=== PATIENT | female | born 1955 | race Caucasian/White ===

== ENCOUNTER → 2023-10-18 09:48 | Outpatient (REF) | payer MEDICARE, SELFPAY ==
[2023-10-18 12:22] LABS: % Basophils 1.2 % (0-2); % Eosinophils 1.7 % (0-6); % Immature Granulocytes 0.1 % (0-0.5); % Lymphocytes 25.2 % (20.5-51.1); % Monocytes 5.3 % (1.7-9.3); % Neutrophils 66.5 % (42.2-75.2); Absolute Basophils 0.1 10^3/uL (0-0.2); Absolute Eosinophils 0.1 10^3/uL (0-0.7); Absolute Lymphocytes 2.1 10^3/uL (1.2-3.4); Absolute Monocytes 0.4 10^3/uL (0.1-0.6); Absolute Neutrophils 5.5 10^3/uL (1.4-6.5); Hematocrit 45.1 % (37.0-47.0); Hemoglobin 14.8 g/dL (12.0-16.0); Mean Corp Hgb Conc. 32.8 g/dL (33.0-37.0); Mean Corpuscular Hgb 28.6 pg (27.0-31.0); Mean Corpuscular Volume 87.2 fL (81.0-99.0); Mean Platelet Volume 12.2 fL (7.4-10.4); Nucleated Red Blood Cells % 0 %; Platelet Count 326 10^3/uL (130-400); Red Blood Cell Count 5.17 10^6/uL (4.20-5.40); Red Cell Dist. Width 13.9 % (11.5-14.5); White Blood Cell Count 8.2 10^3/uL (4.8-10.8)
[2023-10-18 12:58] LABS: ALT (SGPT) 23 U/L (0-35); AST (SGOT) 27 U/L (14-36); Albumin 4.8 g/dl (3.5-5.0); Alkaline Phosphatase 103 U/L (38-126); Blood Urea Nitrogen 17 mg/dl (7-17); Calcium 10.4 mg/dl (8.4-10.2); Carbon Dioxide 28 mmol/L (22-30); Chloride 103 mmol/L (98-107); Glucose 109 mg/dl (70-99); HDL Cholesterol 52 mg/dl; LDL Cholesterol, Calculated 107 mg/dl; Potassium 5.1 mmol/L (3.5-5.1); Sodium 138 mmol/L (135-145); Total Bilirubin 0.8 mg/dl (0.2-1.3); Total Cholesterol 188 mg/dl (50-199); Total Protein 7.2 g/dl (6.3-8.2); Triglyceride 145 mg/dl (10-149); Very Low Density Lipoprotein 29 mg/dl (0-30); eGFR > 60.00
[2023-10-18 13:28] LABS: TSH 2.07 uIU/ml (0.47-4.68)
[2023-10-18 13:47] LABS: Vitamin B12 > 1000 pg/ml (239-931)
== END ==
LOC: HWRAD 09:48
PROVIDERS: ATTENDING PHYSICIAN Nurse Practitioner
DX: Z12.31 Encounter for screening mammogram for malignant neoplasm of breast (principal); R93.89 Abnormal findings on diagnostic imaging of other specified body structures; E06.3 Autoimmune thyroiditis; Z00.00 Encounter for general adult medical examination without abnormal findings; E78.2 Mixed hyperlipidemia
CPT/HCPCS: 36415; 76536; 77063; 77067; 80053; 80061; 82607; 84443; 85025

== ENCOUNTER → 2023-10-31 15:45 | Outpatient (REF) | payer MEDICARE, SELFPAY | LOC: RCS 15:45 | PROVIDERS: ATTENDING PHYSICIAN Nurse Practitioner Gerontology | DX: R42 Dizziness and giddiness (principal) | CPT/HCPCS: 93225; 93226 ==

== ENCOUNTER → 2023-11-07 13:05 | Outpatient (REF) | payer MEDICARE, SELFPAY | LOC: HWRCS 13:05 | PROVIDERS: ATTENDING PHYSICIAN Nurse Practitioner Gerontology; FAMILY PHYSICIAN Nurse Practitioner | DX: R42 Dizziness and giddiness (principal) | CPT/HCPCS: 93306 ==

== ENCOUNTER 2023-12-13 08:36 | Day surgery (SDC) | payer MEDICARE, SELFPAY ==
[2023-12-06 11:04] VITALS: BMI 29.1
[2023-12-06 11:37] LABS: % Basophils 1.2 % (0-2); % Eosinophils 1.4 % (0-6); % Immature Granulocytes 0.2 % (0-0.5); % Lymphocytes 25.9 % (20.5-51.1); % Monocytes 5.5 % (1.7-9.3); % Neutrophils 65.8 % (42.2-75.2); Absolute Basophils 0.1 10^3/uL (0-0.2); Absolute Eosinophils 0.1 10^3/uL (0-0.7); Absolute Lymphocytes 2.3 10^3/uL (1.2-3.4); Absolute Monocytes 0.5 10^3/uL (0.1-0.6); Absolute Neutrophils 5.8 10^3/uL (1.4-6.5); Hematocrit 44.3 % (37.0-47.0); Hemoglobin 14.5 g/dL (12.0-16.0); Mean Corp Hgb Conc. 32.7 g/dL (33.0-37.0); Mean Corpuscular Hgb 27.7 pg (27.0-31.0); Mean Corpuscular Volume 84.7 fL (81.0-99.0); Mean Platelet Volume 12.1 fL (7.4-10.4); Nucleated Red Blood Cells % 0 %; Platelet Count 279 10^3/uL (130-400); Red Blood Cell Count 5.23 10^6/uL (4.20-5.40); Red Cell Dist. Width 13.9 % (11.5-14.5); White Blood Cell Count 8.9 10^3/uL (4.8-10.8)
[2023-12-06 11:47] LABS: ALT (SGPT) 33 U/L (0-35); AST (SGOT) 33 U/L (14-36); Albumin 4.6 g/dl (3.5-5.0); Alkaline Phosphatase 89 U/L (38-126); Blood Urea Nitrogen 24 mg/dl (7-17); Calcium 10.7 mg/dl (8.4-10.2); Carbon Dioxide 28 mmol/L (22-30); Chloride 102 mmol/L (98-107); Estimated Creatinine Clearance 62 ml/min; Glucose 84 mg/dl (70-99); Potassium 4.5 mmol/L (3.5-5.1); Sodium 142 mmol/L (135-145); Total Bilirubin 0.9 mg/dl (0.2-1.3); Total Protein 6.9 g/dl (6.3-8.2); eGFR > 60.00
[2023-12-13] VITALS (9 sets, daily range): BP systolic 111–130; BP diastolic 49–77
[2023-12-13] MEDS: VANCOCIN 200 IV (09:27)
--- NOTE | 2023-12-13 13:00 | ITS.CL.PACE ---
Quality Specialist - Pacemaker Implant
Pacemaker Implant
Procedure Report:
Dual Chamber Pacemaker Placement:
Ms. 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 She is recommended for PPM placement.�
Indications: Tachy David syndrome with symptomatic bradycardia
Date of the Procedure: 12/13/2023
Pre-Operative Diagnosis: Tachy David syndrome
Post-Operative Diagnosis: Tachy David syndrome
Procedure Performed: DUAL CHAMBER PACEMAKER IMPLANTATION
Performing Physician:
Walter Fernandez MD
Anesthesia:
See anesthesia records
Pre-operative antibiotics:
Vanco / Aztreonam
Detailed Description of the Procedure:
The patient was identified using hospital identification and informed consent obtained for the procedure. The risks were explained including, but not limited to: Bleeding, infection, arrhythmia, stroke, vascular/cardiac/lung puncture, surgery,
pacemaker dependency/device malfunction. All questions were answered.
The patient was brought to the electrophysiology laboratory in stable condition in fasting state. Continuous electrocardiographic and hemodynamic monitoring was initiated. The initial rhythm was sinus bradycardia.
A surgical pause and time out was performed immediately prior to the procedure with review of her medical history, recent labs, allergies and medications with site of procedure identified and consent noted in the chart. Antibiotics pre operatively
given. All team members concurred.
The procedure site was meticulously prepared with surgical scrub and allowed to dry with no pooling. Sterile draping was applied to cover the procedure site. The image intensifier was draped with sterile bag and positioned over the patient.
The left infraclavicular region was prepped and draped in the usual sterile fashion. Local anesthesia was administered subcutaneously using 1% lidocaine / Bupivacaine. The left cephalic vein cutdown was attempted. There was a small cephalic noted
but not able to advance any sheaths.
Following infiltration with local anesthetic, the axillary vein was accessed using the fluoroscopic guidance using the micro-puncture apparatus. The vascular sheaths were introduced for lead access. The leads were advanced into the right ventricle
and the right atrium.
The right ventricular lead was secured in position with an active fixation technique at the apical septal location.
The atrial lead was deployed to right atrial appendage and anchored with active fixation.�
There was excellent sensing, pacing, and impedance from the leads, with no diaphragmatic stimulation at 10 V output.�Bovie cautery, antibiotics, and fluoroscopy were used.
The sheaths were withdrawn, and the thresholds remained acceptable. The leads were secured in position at the venous entry site with 2-0 Ethibond. A pocket was fashioned contiguous to the incision.
The electrode terminals were connected to the pulse generator, which was placed into the pocket. The wound was irrigated thoroughly with antibiotic solution. The pacemaker was secured to the underlying fascia with 2-0 Ethibond suture.
The wound was closed in 3 layers using 2-0 V Loc then 2 layers of 4-0 V loc sutures to the dermis. Steri-Strips and Aquacel applied to the wound.
Procedure End:
The procedure was tolerated well.
Estimated Blood loss:
5 cc
Specimens Removed:
No cultures and no specimens were obtained. No intraoperative pathology was identified.
Fluoro time:
5.0 min / 1.7Gycm2
Urine output:
None
Packs / Drains/ Tubes:
None
Instrument / Sponge Count Correct:
Yes
Complications of the Procedure:
None
Condition of Patient at Time of Transfer:
Hemodynamically stable with no neurological or vascular compromise.
Device information:�
Generator: [employer]; Model: W1DR01; Serial # [id number]�
Atrial Lead: [employer]; Model: 5076-45; Serial # [id number]�
Measured data in the right atrium was sensing of 1.8 mV, impedance of 684 ohms and threshold of 1.0 V at 0.4ms.
RV Lead: [employer]; Model: 5076-52; Serial # [id number]
Measured data in the RV lead was sensing of 10mV, impedance of 665 ohms and threshold of 0.75 V at 0.4ms�
David parameter settings were AAIR <=>DDDR 60-130 bpm. �
����������� Mode Switch: On
����������� Paced AV interval: 180ms
����������� Sensed AV interval: 150 ms.
����������� Rate Adaptive A-V Interval: Off
Output� parameters:
����������������������� Amplitude (V)������������� Pulse Width (ms)������� Sensitivity (mV)
����������� RA: ����� 3.5 ����������������� ����������� 0.4������������������ ����������� 0.3
����������� RV:������ 3.5������������������ ����������� 0.4������������������ ����������� 0.9
Summary:
Successful implantation of MRI compatible dual chamber Medtronic pacemaker
Results/Recommendations:
-Please follow up CXR�
1. Please provide patient with adequate pain control�
Instructions to be given to patient:�
- Please follow up with [facility] at [address] [place] [address] ([phone]) to get your wound checked within 14 days of your discharge.
- Do not wet incision site until after it is evaluated at cardiology clinic. No showers until then. Sponge baths are OK.�
- No swimming until cleared by the cardiology clinic.
- Do not lift left elbow above shoulder, particularly with sudden jerking movements, for 1 month�
- Do not lift anything weighing more than 10 pounds with the left arm for 1 month�
- If you notice any fevers, shortness of breath, lightheadedness, chest pain, or worsening swelling in the wound site, please contact the arrhythmia clinic, contact your nicu rn, or present to the hospital for evaluation.�
Walter Fernandez MD
Electrophysiology
[2023-12-13] MEDS: CALAN EXTENDED RELEASE 120 MG PO (14:54)
--- NOTE | 2023-12-13 15:03 | W.PN.UPDATE ---
Update Note
Progress Note Update
68 YOWF s/p DC PPM (same day). Denies cp, sob, marilin diet, EKG A paced with frequent PAC's, CXR no PTX. She was on metoprolol but stopped d/t asthma/cough, she did not tolerate Diltiazem ER but did tolerate short acting. We will trial verapamil ER
120mg daily to help with her ectopy. Activity restrictions reviewed. She has incision check in 1 week with [facility]. She is for d/c home after 4pm.
[2023-12-13] MEDS: TYLENOL 650 MG PO (15:34)
== END 2023-12-13 15:52 | disposition home or self-care (01) ==
LOC: CATH 08:36
PROVIDERS: ATTENDING PHYSICIAN Internal Medicine Cardiovascular Disease; OTHER PHYSICIAN Internal Medicine Cardiovascular Disease
DX: I49.5 Sick sinus syndrome (principal); I10 Essential (primary) hypertension; E78.00 Pure hypercholesterolemia, unspecified; Z79.82 Long term (current) use of aspirin
CPT/HCPCS: 33208; C1892; 36415; 71045; 80053; 85025; 93005; C1785; C1898; Q9967

== ENCOUNTER 2023-12-14 15:51 | Inpatient (IN) | payer MEDICARE, SELFPAY ==
[2023-12-14] VITALS (16 sets, daily range): BP systolic 124–196; BP diastolic 66–91; BMI 29.5
--- NOTE | 2023-12-14 12:45 | ED.GENMED ---
History of Present Illness
General
Chief Complaint: Chest Pain
Time Seen by Provider: 12/14/23 12:34
History of Present Illness
History of Present Illness:
Patient presents to the emergency department with left-sided chest pain. Had a pacemaker placed for bradycardia yesterday. She states last night she was having some shooting pains across her anterior chest and down the left arm. Pains are not
worsened by movement. Pain is worse with inhalation now she is having sharp pains that radiate under her left breast. She endorses mild shortness of breath. No fevers or chills. No leg swelling. Reports strong history of blood clots and had a
DVT at 1 point in her life. She is not currently on any anticoagulation
Past History
Past History
ED Past Medical History: None
Social History
Living: with family
Phy Exam
Physical Exam
Physical Exam:
GENERAL APPEARANCE: NAD, well developed/ well nourished
EYES lids/conjunctiva normal
EARS/NOSE/THROAT Mucous membranes moist,
HEAD/NECK normocephalic atraumatic, neck is supple.
RESPIRATORY respiratory effort normal, speaks in full sentences, no accessory muscle use. Lungs clear to auscultation without rhonchi, wheezes, rales
CARDIAC Regular rate and rhythm, no edema. Left chest wall status post pacemaker placement. Postoperative dressing is clean and intact without bleeding. There is no erythema in the surrounding skin. There is no crepitus
ABDOMINAL Soft, ND/NT.
MUSCLES/EXTREMITIES No abnormal range of motion, no swelling.
SKIN Warm, pink and dry. No rashes
NEUROLOGICAL Speech is clear and appropriate. Normal level of consciousness. 5/5 strength in all extremities.
PSYCH Normal mood and affect. Judgement/competence is appropriate
Scores
Heart Score for Chest Pain Patients
STEMI patient?: No
History: Slightly or Non-Suspicious
ECG: Nonspecific Repolarization
Age: >/= 65 years
Risk Factors: 1 or 2 Risk Factors
Troponin: >1 - <3 x Normal Limit
Heart Score for Chest Pain Patients: 5
Heart Score Risk: 20.3% MACE over next 6 weeks
Course
Orders/Labs/Results
Orders:
Orders
12/14/23 12:13
EKG [Electrocardiogram (*1)] Urgent
Reason for Study: Chest Pain
EKG- Treatment ONCE
12/14/23 12:44
CR Chest - 2 Views Urgent
Comment:
Reason For Exam: chest pain
12/14/23 12:46
Basic Metabolic Panel Urgent
Complete Blood Count/With Diff Urgent
D-Dimer Urgent
Magnesium Urgent
Troponin I Urgent
12/14/23 13:12
CT Chest Pe Study Urgent
Comment:
Reason For Exam: pleuritic pain, s/p ppm
12/14/23 14:09
Echo Follow-up Study Stat
Reason for Study: CP S/P PPM
12/14/23 15:41
Admit/Transfer Patient As Directed
Co-Sign Provider:
Level of Care: Inpatient admission
Assign to:: IVU
Physician / Group: CBC
Diagnosis: Pacemaker lead malfunction
Reason for Hospitalization: Pacemaker lead malfunction, requiring revision
Expected length of stay greater than two midnights?: Yes
ELOS- Estimated Length of Stay in days: 3
I certify the patient meets the requirements for IP care: Yes
12/14/23 15:42
Code Status As Directed
Resuscitation Status: Full Code
PRN Pain Medication Management As Directed
May give lesser potent ordered pain med per pt: Yes
preference::
Protocol:: Medication orders for pain may be administered in a
manner that supports deferring to patient preference
when the pt is:
- Requesting an ordered lesser potent pain medication.
Least to most potent pain medications are defined
as: acetaminophen < NSAID < tramadol < opioids
(morphine, oxycodone, hydromorphone).
- Requesting a lesser dose of the same medication IF
ORDERED.
- Requesting a less intrusive route of administration
if both routes are prescribed by the provider (PO <
IV).
12/14/23 17:06
Activity As Directed
Activity Level: With Assistance
As Tolerated
INT (Intravenous Needle Therapy) As Directed
Intake/ Output As Directed
Frequency: Per unit guidelines
Pneumatic Compression Sleeves As Directed
Type: Knee high
Vital Signs As Directed
Frequency: Per unit guidelines
Weight As Directed
Frequency: Once
Type of Scale: Standing Scale
DX Deep Vein Thrombosis Video Routine
12/14/23 17:19
Troponin I Urgent
12/15/23 06:00
CBC/No Diff [Complete Blood Count/No Diff] IN AM
Abnormal Lab Results
12/14/23
12:46
WBC 17.2 H 10^3/uL
(4.8-10.8)
MPV 11.8 H fL
(7.4-10.4)
Abs Immat Gran (auto) 0.1 H 10^3/uL
(0-0.05)
Absolute Neuts (auto) 13.6 H 10^3/uL
(1.4-6.5)
Absolute Monos (auto) 1.0 H 10^3/uL
(0.1-0.6)
Neutrophils % 79.3 H %
(42.2-75.2)
Lymphocytes % 14.5 L %
(20.5-51.1)
D-Dimer 3.28 H ug/mlFEU
(0.00-0.50)
Glucose 101 H mg/dl
(70-99)
Calcium 11.8 H mg/dl
(8.4-10.2)
Troponin I 0.060 H* ng/ml
12/14/23 12:46
12/14/23 12:46
Vital Signs
Initial and Last Documented VS:
Initial Vital Signs
Pulse Resp BP Pulse Ox
67 16 196/88 98
12/14/23 12:15 12/14/23 12:15 12/14/23 12:15 12/14/23 12:15
Last Documented Vital Signs
Temp Pulse Resp BP Pulse Ox
98.1 F 79 16 145/73 96
12/14/23 19:01 12/14/23 19:40 12/14/23 19:40 12/14/23 19:30 12/14/23 19:40
*Critical Care Note
Total Time (30-74mins, 75-104mins- exclusive of procedures): Not Applicable
ED Attending Note
ED Attending Note
ED Attending Note:
Patient presents with postoperative chest pain on the left side around the area of pacemaker. Pacemaker site appears normal. Will check x-ray. Differential diagnosis includes postoperative pain, PE, pneumo fraction. Will check chest x-ray, labs,
reassess
CT scan showing right ventricular pacemaker lead is through the myocardium and into the left chest wall. Cardiology consulted. Patient remains hemodynamically stable. Will continue to monitor
-
Portions of this chart may have been created with voice recognition software.� Occasional wrong word or��sound alike� substitutions may have occurred due to the inherent limitations of voice recognition software.
Discharge Plan
Departure
Patient Disposition: Admit
Date of Disposition: 12/14/23
Time of Disposition: 15:53
Admit to: Telemetry
Admit to doctor: cardiology
Presentation/result/management discussed w/ accepting MD/DO: Dr Allen
Discharge Problem:
Malfunction of cardiac pacemaker
Interventions
Interventions:
*Risk Screen - Suicide Last Done: 12/14/23 12:15
*General Assessment Last Done: 12/14/23 14:50
*Neglect/Abuse Screening Last Done: 12/14/23 14:50
ED- Fall Risk Assessment Last Done: 12/14/23 16:17
*ED COVID-19 Vaccine History Last Done: 12/14/23 14:50
*Nursing Disposition Last Done: 12/14/23 16:19
ED- Cardiac Assessment Last Done: 12/14/23 16:17
Discharge Date and Time
Discharge Date/Time: 12/14/23 16:19
[2023-12-14 13:00] LABS: % Basophils 0.2 % (0-2); % Immature Granulocytes 0.3 % (0-0.5); % Lymphocytes 14.5 % (20.5-51.1); % Monocytes 5.7 % (1.7-9.3); % Neutrophils 79.3 % (42.2-75.2); Absolute Immature Granulocytes 0.1 10^3/uL (0-0.05); Absolute Lymphocytes 2.5 10^3/uL (1.2-3.4); Absolute Neutrophils 13.6 10^3/uL (1.4-6.5); Hematocrit 44.4 % (37.0-47.0); Hemoglobin 15.1 g/dL (12.0-16.0); Mean Corpuscular Volume 85.2 fL (81.0-99.0); Mean Platelet Volume 11.8 fL (7.4-10.4); Nucleated Red Blood Cells % 0 %; Platelet Count 273 10^3/uL (130-400); Red Blood Cell Count 5.21 10^6/uL (4.20-5.40); Red Cell Dist. Width 13.8 % (11.5-14.5); White Blood Cell Count 17.2 10^3/uL (4.8-10.8)
[2023-12-14 13:08] LABS: D-Dimer 3.28 ug/mlFEU (0.00-0.50)
[2023-12-14 13:11] LABS: Blood Urea Nitrogen 15 mg/dl (7-17); Calcium 11.8 mg/dl (8.4-10.2); Carbon Dioxide 25 mmol/L (22-30); Chloride 103 mmol/L (98-107); Glucose 101 mg/dl (70-99); Magnesium 2.1 mg/dl (1.6-2.3); Potassium 4.3 mmol/L (3.5-5.1); Sodium 141 mmol/L (135-145); eGFR > 60.00
--- NOTE | 2023-12-14 15:36 | HPS.HSE ---
Addendum entered and electronically signed by Charles Allen MD 12/14/23 16:40:
Patient seen and examined in collaboration with TORCH CUTTER; agree with below.
-68-year-old female who underwent permanent pacemaker implantation yesterday; presenting with sharp left-sided chest pain.
-Stat echocardiogram revealed no pericardial effusion; cardiac function was normal.
-Device interrogation did reveal intermittent pacemaker malfunction.
-Discussed with EP Cardiology; patient will need to undergo lead revision.
-Will admit to Cardiology service with plan for patient to undergo lead revision today.
Original Note:
Family Physician
-
Family Physician: Jazzy La
Primary Supervisor Electronics Testing: Josh Casanova
EP Supervisor Electronics Testing: Walter Fernandez
Chief Complaint
-
Chest pain
History of Present Illness
Mandie Tsang is a 68-year-old female with hypertension, frequent PACs, and SVT who presented in the outpatient setting with low heart rate, fatigue, dizziness, and nausea. I ordered a Holter monitor which showed bradycardia and tachycardia while
off her AV michele agents. She had frequent atrial ectopy approximately 21% of beats. I referred her to EP cardiology. She was seen by Dr. Fernandez who recommended pacemaker. Yesterday, she underwent Medtronic pacemaker. She had no postprocedure
complications and was discharged home. She presented back today with severe chest pain. Some of it alleviated with Tylenol but it persistently returned. She reports it was severe in nature. She had associated shortness of breath. CAT scan
showed RV lead penetrated through the myocardium and the tip is now within the anterior chest wall. She is waiting echocardiogram to rule out pericardial effusion. The device rep has been contacted for interrogation.
Medical History
Past Medical History
Past Medical History: Reports Arrhythmia (PACs, SVT, Tachycardia-bradycardia syndrome [PPM 12/13/23]), HTN and Hypercholesterolemia
Past Surgical History: Reports Gynocological
Social History
Tobacco: Non-smoker
Personal:
Living: With Family
Family History
Family History: Not pertinent
Allergies / Home Medications
Allergies reflects when Allergies were last updated in [facility].
Home Medications with original date entered in [facility]
Allergy/Medication List:
Allergies:
Penicillin caused rash
Trelegy
Home medication list:
Albuterol sulfate
Aspirin 81 mg daily
Qvar 1 inhalation twice daily
Levothyroxine 25 mcg p.o. daily
Meclizine 25 mg p.o. as needed dizziness
Montelukast 10 mg p.o. daily
Rosuvastatin 10 mg p.o. daily
Verapamil 120 mg p.o. every afternoon
Multivitamin 1 tab p.o. daily
Review of Systems
-
History Source: Patient
A 12 point ROS was completed and negative except as noted: Yes
Constitutional: Reports See HPI
EENT: Reports No Symptoms
Respiratory: Reports No Symptoms
Cardiac: Reports No Symptoms
Abdomen/GI: Reports No Symptoms
: Reports No Symptoms
Musculoskeletal: Reports No Symptoms
Skin: Reports No Symptoms
Neurological: Reports No Symptoms
Endocrine: Reports No Symptoms
Hematologic/Lymphatic: Reports No Symptoms
Psych: Reports No Symptoms
Physical Exam
Vital Signs
Vital Signs
Pulse Resp BP Pulse Ox
74 19 172/88 95
12/14/23 14:45 12/14/23 14:45 12/14/23 14:00 12/14/23 14:45
Physical Exam
General: Well Developed, Well Nourished, No Apparent Distress and Comfortable
HEENT: NormoCephalic, Anicteric and Moist mucous membranes
Respiratory: Clear
Cardiac: S1/S2 and Regular Rhythm
Breast: Deferred by me
GI: Soft, Non Tender, Non Distended and Normal Bowel Sounds
Rectal: Deferred by Provider
Genito-urinary: No costovertebral tender
Musculoskeletal: No Clubbing, No Cyanosis and No Edema
Skin: Warm, Dry and Other (Left chest site without hematoma)
Neuro: AO x 3
Hematologic/Lymphatic: No Lymphadenopathy
Laboratory Results
-
12/14/23 12:46
12/14/23 12:46
Laboratory Results
Troponin I 0.060 ng/ml H* 12/14/23 12:46
Data Reviewed
-
Diagnostic Radiology: Report Reviewed by me
Lab Data: Labs Reviewed by me
Old Records: Reviewed
Impression/Plan
-
BACKGROUND: 68-year-old female with hypertension, frequent PACs, and SVT who presented in the outpatient setting with low heart rate, fatigue, dizziness, and nausea -> Holter with tachybrady -> PPM 12/13/2023 and today is having left anterior CP
Supervisor Electronics Testing: Dr. Casanova
EP: Dr. Fernandez
Left anterior chest pain
-No hematoma
-Significant without relief with acetaminophen
-CT scan showed RV lead penetrated through myocardium with tip in the left anterior chest wall
-Echocardiogram
-Device rep contacted, interrogation, hold AV michele agent until interrogation completed
Abnormal troponin, likely nonischemic myocardial injury in the setting of recent cardiac procedure
-Trend to peak
Tachycardia�bradycardia syndrome, status post Medtronic dual-chamber PPM 12/14/[address] Fernandez
Leukocytosis, likely reactive, CBC in a.m.
Asthma, chronic, no acute exacerbation
Dyslipidemia, on rosuvastatin
--- NOTE | 2023-12-14 16:19 | EDRN ---
Went in to draw type and screen and meet pt, called by laboratory clerk and informed they are ready for pt. Unable to provide report at that time due to just meeting pt - requested call back in less than 5 minutes. Type and screen drawn. Pt says she had
a pacer placed yesterday, has had intermittent L side cp. Today pain got a lot worse radiating down her L arm and more intense. Pt says while pacer being interrogated she felt electrical shocks through her body and her whole body was jumping. Pt
denies sob, has intermittent cp now. medical lab director called back and given quick report. Krys Parsons, RN transported pt to laboratory clerk with pt's family.
--- NOTE | 2023-12-14 17:16 | ITS.CL.PACE ---
Senior Data Warehouse Developer - Pacemaker Implant
Pacemaker Implant
Procedure Report:
Date of Procedure: December 14, 2023.
Procedure: Pacemaker Lead Revision.
Indication: RV lead malfunction from lead dislodgment/migration.
Performing physician: Joey Wagner MD., [facility].
Retained Hardware (implanted on 12/13/2023):
Pulse Generator: [employer]; Model# [id number]; Serial # [id number].
RA Lead: [employer]; Model# 5076-45; Serial # [id number].
RV Lead: [employer]; Model# 5076-52; Serial # [id number].
Technique: A time out was performed. The procedure site was identified. The patient was anesthetized by the anesthesia service. Anesthesia preparation included arterial line access and general endotracheal intubation. Cardiothoracic surgery was
standing by and into the control room during lead manipulation back to the right ventricle. Preoperative vancomycin and aztreonam was administered. The patient was prepped and draped in the usual fashion with extension of the preparation to include
the full chest in case cardiothoracic surgery was necessary. Lead fluoroscopy in BECKMAN, AP, and LEBANESE projections was performed. LEBANESE was most informative. The lead appeared to be across or deeply into the septum and potentially beyond the pericardium
where the tip might have been in the pericardial space or just beyond as suggested by the CT scan. Local anesthetic was applied to the over the incision in the left anterior chest. A 3 inch incision was made the incision made yesterday by
Jim. Dissection was carried to the fascia. The RV lead was freed from stay suture. The screw was retracted. Very gentle traction was applied to the RV lead under continuous fluoroscopy. Resistance was met. Gentle traction freedom lead until
clearly was back into the right ventricular cavity. The lead was withdrawn into the right atrium. A J stylette was used to cross the tricuspid valve. The lead was placed in the mid RV septum as confirmed by multiplanar fluoroscopy. The ventricular
lead was secured to the pectoralis muscle and fascia with two 0-silk sutures. 8 volt pacing from the RV lead did not capture the diaphragm. Hemostasis was excellent. The RV lead was appropriately attached to the device. The pocket was irrigated with
antibiotic solution. A Ansiratronic Tyrx absorbable antibiotic pouch was placed. The device and leads were placed in the pocket. The incision was closed in three layers with absorbable suture. Steri-strips and a silver impregnated dressing were placed.
Estimated blood loss was 2 ml. There were no complications. F Fluoroscopy time 2.2 minutes and DAP 1.02 GyCM2. The device was then interrogated after skin closure.
Lead Analysis:
RA lead: P: 4.5 mV; Threshold: 0.5 V @ 0.4 ms; Impedance: 513 ohms.
RV lead: R: 12 mV; Threshold: 0.75 V @ 0.4 ms; Impedance: 893 ohms.
Final Programming: MVP (AAIR to DDDR) 60-130 bpm.
Conclusion: Uncomplicated Medtronic pacemaker implant. The pacing system is MRI conditional.
Recommendation: Routine post pacemaker care.
cc: Walter Fernandez MD.
[2023-12-14 17:51] LABS: Troponin I 0.056 ng/ml
--- NOTE | 2023-12-14 19:47 | PTCARENOTE ---
Received pt from day shift RN; pt AAOx3 and resting comfortably in bed; NSR on monitor and VSS; PIV x2 and Left A-line patent; Lungs clear; positive bowel sounds; pt voiding yellow urine via pure wick; palpable pulses throughout; no edema noted; see
nursing documentation for further details.
[2023-12-14] MEDS: TYLENOL 650 MG PO (20:17)
[2023-12-14] MEDS: AZACTAM 2000 MG IV (20:17)
[2023-12-14] MEDS: SINGULAIR 10 MG PO (21:07)
[2023-12-14] MEDS: CRESTOR 10 MG PO (21:07)
[2023-12-15] VITALS (14 sets, daily range): BP systolic 119–164; BP diastolic 60–87; BMI 29.8
--- NOTE | 2023-12-15 | PTCARENOTE ---
Patient received resting in bed, dozing intermittently. Patient A+A+Ox3. No neurological deficits noted. No c/o pain or discomfort. No s/s of respiratory distress. No c/o SOB. Room air. SpO2 92%. Lungs clear. Patient with Permanent
Pacemaker. Sinus Rhythm. Occasional PAC. Occasional A-Pacing noted. Left arm immobilizer intact. Left anterior chest wall Aquacell dressing intact - No hematoma, bleeding, oozing or swelling noted. Positive circulation, sensation and movement
to left upper extremity. Patient with no c/o chest pain, pressure or discomfort. Normoactive bowel sounds. Patient with Female External Urinary Device (Pure Wick) in place - Yellow urine. Bedrest. No edema. Positive pulses. Left radial
arterial line - Intact and patent - Flushes without difficulty - Zeroed and calibrated. Assessment as documented.
--- NOTE | 2023-12-15 03:00 | PTCARENOTE ---
Patient sleeping without difficulty. No further changes from previous assessment.
[2023-12-15] MEDS: SYNTHROID 25 MCG PO (05:27)
[2023-12-15 05:41] LABS: Mean Corp Hgb Conc. 33.3 g/dL (33.0-37.0); Mean Corpuscular Hgb 27.8 pg (27.0-31.0); Mean Corpuscular Volume 83.3 fL (81.0-99.0); Mean Platelet Volume 11.4 fL (7.4-10.4); Platelet Count 257 10^3/uL (130-400); Red Blood Cell Count 5.04 10^6/uL (4.20-5.40); White Blood Cell Count 12.3 10^3/uL (4.8-10.8)
[2023-12-15 06:11] LABS: Blood Urea Nitrogen 18 mg/dl (7-17); Calcium 9.9 mg/dl (8.4-10.2); Carbon Dioxide 24 mmol/L (22-30); Chloride 107 mmol/L (98-107); Estimated Creatinine Clearance 86 ml/min; Glucose 138 mg/dl (70-99); Potassium 4.8 mmol/L (3.5-5.1); Sodium 143 mmol/L (135-145); eGFR > 60.00
--- NOTE | 2023-12-15 07:25 | PTCARENOTE ---
Pt received from outgoing RN, pt in bed resting, POD 1 revision of PPM. Aaox4, vss, RA, Lt radial [place], Left arm sling, purewick. Potential dced home today pending cardiology eval.
--- NOTE | 2023-12-15 08:24 | W.PN.CD ---
Today's Communication / Plan
-
DC arterial line
Downgrade to IVU
Interrogate the pacemaker and bedside echo.
Impression / Plan
-
68-year-old female with hypertension, frequent PACs, and SVT who presented in the outpatient setting with low heart rate, fatigue, dizziness, and nausea -> Holter with tachybrady -> PPM 12/13/2023 with subsequent RV lead dislodgement s/p lead
revision on 12/14/2023
[employer] Finishing Supervisor: Dr. Casanova
EP: Dr. Fernandez
RV lead dislodgment
-RV lead was dislodged and moved into RVOT.
-RV tip was intermittently capturing the RV
-Dr. Wagner was able to reposition the lead.
-Patient's lead is working normally at this time.
-Patient blood pressure remained elevated overnight. No sign of perforation.
-Echo shows no pericardial effusion.
-Can remove arterial line today.
-Transfer to IVU
Tachybradycardia syndrome
-status post Medtronic dual-chamber PPM 12/14/2023
-Can restart verapamil 120 mg twice daily
-Needs to suppress SVT, PACs and PVCs
Abnormal troponin, likely nonischemic myocardial injury in the setting of recent cardiac procedure
-Trend to peak
Tachycardia�bradycardia syndrome, status post Medtronic dual-chamber PPM 12/14/[address] Fernandez
Leukocytosis, likely reactive, CBC in a.m.
Asthma, chronic, no acute exacerbation
Dyslipidemia, on rosuvastatin
Physical Exam
Vital Signs/Labs
Vital Signs
Temp Pulse Resp BP Pulse Ox
98.6 F 68 14 137/77 97
12/15/23 00:00 12/15/23 03:30 12/15/23 03:30 12/15/23 03:00 12/15/23 07:27
12/14/23 12/15/23 12/16/23
06:59 06:59 06:59
Actual Weight 86.1 kg
12/15/23 05:25
12/15/23 05:25
Magnesium 2.1 mg/dl (1.6-2.3) 12/14/23 12:46
LAB Results
12/14/23 12/14/23
12:46 17:19
Troponin I 0.060 H* 0.056 H*
Physical Exam
Constitutional: No acute distress and Comfortable
EENT: Anicteric and Moist mucous membranes
Cardiovascular: Rhythm & rate is regular, Pedal edema is absent and JVD pressure is normal
Respiratory: Respiratory effort normal, Lungs clear to auscul. and Wheeze Absent
GI: Soft, Non tender and Normal bowel sounds
Neuro/Psych: Alert, Oriented, AO x 3 and Motor deficits absent
Other: Cardiac Device Site
Data Reviewed
-
Date of Service: December 15, 2023
Medical Decision Making: Reviewed Test Results, Independent Historian Assessment and Test Interpretation
EKG: Tracing Personally Visualized and interpreted
Echo: Report Reviewed by me
X-Ray/CT/US/MRI/NUC/PET: Image Personally Visualized and interpreted
Labs: Labs Reviewed by me
Old Records: Reviewed
Critical Care Time (in minutes): 35
--- NOTE | 2023-12-15 08:30 | PTCARENOTE ---
Alice spicer per , transfer to IVU.
[2023-12-15] MEDS: TYLENOL 650 MG PO ×3 (12:28→21:29)
--- NOTE | 2023-12-15 13:19 | PTCARENOTE ---
Pt reassessment unchanged from previous, vss, ra, oob to chair and ambulating to BR, left arm sling, left cw dressing sp PPM revision, transfer to IVU rm [id number] this afternoon.
--- NOTE | 2023-12-15 14:21 | PTCARENOTE ---
Report given to Madelaine MCFARLANE in IVU pt will be transfer to IVU [id number]
--- NOTE | 2023-12-15 15:15 | PTCARENOTE ---
Rec'd report from Nickolas in CVICU; Rec'd pt AAOx3 w/no c/o CP or SOB. Pt ambulated from CVICU to IVU unassisted. Pt's VS stable w/HR in the 70's & BP on arrival to IVU 133/69. Pt w/L chest wall PPM dressing site C/D/I w/sm amt of old drainage; no
signs or symptoms of active bleeding or hematoma. Pt w/immobilizer in place at this time. Pt oriented to room, call dan within reach & plan of care ongoing.
[2023-12-15] MEDS: SINGULAIR 10 MG PO (20:41)
[2023-12-15] MEDS: CALAN EXTENDED RELEASE 120 MG PO (20:41)
[2023-12-15] MEDS: CRESTOR 10 MG PO (20:42)
[2023-12-15] MEDS: FLORASTOR 250 MG PO (21:29)
--- NOTE | 2023-12-16 02:04 | PTCARENOTE ---
Pt. NSR on the monitor 60's-80, occ. A & AV pacing seen. VSS. Left chest wall dressing CDI. Medicated with Tylenol for incisional discomfort with good results obtained.
[2023-12-16 02:08] VITALS: BP 124/70
[2023-12-16] MEDS: TYLENOL 650 MG PO ×3 (02:35→12:24)
[2023-12-16] MEDS: SYNTHROID 25 MCG PO (06:03)
[2023-12-16 07:48] VITALS: BP 141/76
[2023-12-16] MEDS: CALAN EXTENDED RELEASE 120 MG PO (07:50)
[2023-12-16] MEDS: FLORASTOR 250 MG PO (07:50)
--- NOTE | 2023-12-16 09:00 | W.PN.CD ---
Today's Communication / Plan
-
-Stable for discharge.
Impression / Plan
-
68-year-old female with hypertension, frequent PACs, and SVT who presented in the outpatient setting with low heart rate, fatigue, dizziness, and nausea -> Holter with tachybrady -> PPM 12/13/2023 with subsequent RV lead dislodgement s/p lead
revision on 12/14/2023
Bundle Packer: Dr. Casanova
EP: Dr. Fernandez
RV lead dislodgment
-RV lead was dislodged
-RV tip was intermittently capturing the RV
-Dr. Wagner was able to reposition the lead.
-Patient's leads are working normally at this time.
-Echo repeated today with no sign of pericardial effusion.
-Pacemaker was interrogated with normal functioning. Normal threshold.
Tachybradycardia syndrome
-status post Medtronic dual-chamber PPM 12/14/2023
-Can restart verapamil 120 mg twice daily
-Needs to suppress SVT, PACs and PVCs
Hypertension
-Blood pressure has stabilized and tolerating addition of verapamil.
Abnormal troponin, likely nonischemic myocardial injury in the setting of recent cardiac procedure
-Trend to peak
Tachycardia�bradycardia syndrome, status post Medtronic dual-chamber PPM 12/14/[address] Fernandez
Leukocytosis, likely reactive, CBC in a.m.
Asthma, chronic, no acute exacerbation
Dyslipidemia, on rosuvastatin
Physical Exam
Vital Signs/Labs
Vital Signs
Temp Pulse Resp BP Pulse Ox
98.9 F 71 20 141/76 97
12/16/23 07:42 12/16/23 07:50 12/16/23 07:42 12/16/23 07:50 12/16/23 07:42
12/15/23 12/16/23 12/17/23
06:59 06:59 06:59
Actual Weight 86.1 kg
Magnesium 2.1 mg/dl (1.6-2.3) 12/14/23 12:46
LAB Results
12/14/23 12/14/23
12:46 17:19
Troponin I 0.060 H* 0.056 H*
Physical Exam
Constitutional: No acute distress and Comfortable
EENT: Anicteric and Moist mucous membranes
Cardiovascular: Rhythm & rate is regular, Pedal edema is absent, JVD pressure is normal and Systolic murmur present
Respiratory: Respiratory effort normal, Wheeze Absent and Crackles Absent
GI: Soft, Distention absent and Non tender
Neuro/Psych: Alert, Oriented and AO x 3
Other: Cardiac Device Site
Data Reviewed
-
Date of Service: December 16, 2023
Medical Decision Making: Reviewed Test Results, Independent Historian Assessment, Test Interpretation and Review of Case with other Provider
EKG: Tracing Personally Visualized and interpreted
Echo: Report Reviewed by me
X-Ray/CT/US/MRI/NUC/PET: Image Personally Visualized and interpreted
Medical Tests (PFT, Pathology etc): Discussed with Patient
Labs: Labs Reviewed by me
Old Records: Reviewed
[2023-12-16 10:40] LABS: Hematocrit 41.8 % (37.0-47.0); Hemoglobin 14.2 g/dL (12.0-16.0); Mean Corpuscular Hgb 28.4 pg (27.0-31.0); Mean Corpuscular Volume 83.6 fL (81.0-99.0); Mean Platelet Volume 11.5 fL (7.4-10.4); Platelet Count 236 10^3/uL (130-400); Red Cell Dist. Width 14.3 % (11.5-14.5); White Blood Cell Count 12.6 10^3/uL (4.8-10.8)
[2023-12-16 11:13] LABS: Blood Urea Nitrogen 23 mg/dl (7-17); Carbon Dioxide 31 mmol/L (22-30); Chloride 102 mmol/L (98-107); Estimated Creatinine Clearance 76 ml/min; Glucose 96 mg/dl (70-99); Potassium 4.1 mmol/L (3.5-5.1); Sodium 141 mmol/L (135-145); eGFR > 60.00
[2023-12-16] MEDS: ANESTHETIC LOZENGE 1 LOZENGE PO (11:57)
[2023-12-16 12:12] VITALS: BP 145/64
[2023-12-16] MEDS: ULTRAM 50 MG PO (12:32)
--- NOTE | 2023-12-16 13:12 | PTCARENOTE ---
Rec'd pt at change of shift in Vpaced rhythm, VSS, and AAO*3. Pt reported pain from incision site at an 8/10. Pt with left chest wall dressing CDI and agreed not to lift arm above shoulder level. Dr Fernandez notified for pain and inspected
incision site. Tylenol and one time order of tramadol given per order for pain. Pt denies further SOB or radiating pain. Pt resting in bed with call dan in reach.
[2023-12-16 15:08] VITALS: BP 131/67
[2023-12-16 15:10] VITALS: BP 131/67
--- NOTE | 2023-12-16 15:36 | PTCARENOTE ---
Rec'd order for discharge. Pt given discharge instruction and medication list. Pt verbalized understanding of instructions and left room with belongings. Rn removed TELE monitor and INT. Vital signs take within the hour of being discharged. Pt
escorted off unit by staff with belongings via wheelchair. Pt ambulated into to car without assistance safely being driven home by .
== END 2023-12-16 13:30 | disposition home or self-care (01) | DRG 261 ==
LOC: IVU 15:51
PROVIDERS: Internal Medicine Cardiovascular Disease; Nurse Practitioner; Nurse Practitioner Gerontology; ADMITTING PHYSICIAN Internal Medicine; ATTENDING PHYSICIAN Internal Medicine Cardiovascular Disease; EMERGENCY PHYSICIAN Emergency Medicine; FAMILY PHYSICIAN Internal Medicine
PROC: 02WA0MZ Revision of Cardiac Lead in Heart, Open Approach (ICD-10-PCS; 2023-12-14)
DX: T82.120A Displacement of cardiac electrode, initial encounter (principal); I5A Non-ischemic myocardial injury (non-traumatic); I10 Essential (primary) hypertension; J45.909 Unspecified asthma, uncomplicated; Y71.2 Prosthetic and other implants, materials and accessory cardiovascular devices associated with adverse incidents; E78.00 Pure hypercholesterolemia, unspecified; I49.5 Sick sinus syndrome; D72.829 Elevated white blood cell count, unspecified; Z98.890 Other specified postprocedural states; Z95.0 Presence of cardiac pacemaker; Z79.82 Long term (current) use of aspirin; Z79.890 Hormone replacement therapy; Z79.899 Other long term (current) drug therapy; Z86.79 Personal history of other diseases of the circulatory system; Z86.718 Personal history of other venous thrombosis and embolism; Z88.0 Allergy status to penicillin; Z88.8 Allergy status to other drugs, medicaments and biological substances
CPT/HCPCS: 93308; 33215; 71045; 71046; 71275; 80048; 83735; 84484; 85025; 85027; 85379; 86850; 86900; 86901; 93005; 99285; Q9967

== ENCOUNTER → 2024-02-12 14:35 | Outpatient (REF) | payer MEDICARE, SELFPAY | LOC: RAD 14:35 | PROVIDERS: ATTENDING PHYSICIAN Nurse Practitioner Gerontology; FAMILY PHYSICIAN Internal Medicine | DX: M79.89 Other specified soft tissue disorders (principal) | CPT/HCPCS: 93971 ==

== ENCOUNTER → 2024-05-15 13:04 | Outpatient (REF) | payer MEDICARE, SELFPAY | LOC: HWRCS 13:04 | PROVIDERS: ATTENDING PHYSICIAN Nurse Practitioner; FAMILY PHYSICIAN Internal Medicine | DX: R53.83 Other fatigue (principal); Z95.0 Presence of cardiac pacemaker | CPT/HCPCS: 93306 ==

== ENCOUNTER → 2024-05-20 08:36 | Outpatient (REF) | payer MEDICARE, SELFPAY ==
[2024-05-20 13:06] LABS: % Basophils 0.8 % (0-2); % Eosinophils 1.5 % (0-6); % Immature Granulocytes 0.2 % (0-0.5); % Lymphocytes 22.5 % (20.5-51.1); % Monocytes 4.9 % (1.7-9.3); % Neutrophils 70.1 % (42.2-75.2); Absolute Basophils 0.1 10^3/uL (0-0.2); Absolute Eosinophils 0.1 10^3/uL (0-0.7); Absolute Monocytes 0.4 10^3/uL (0.1-0.6); Absolute Neutrophils 6.3 10^3/uL (1.4-6.5); Hematocrit 45.6 % (37.0-47.0); Hemoglobin 14.8 g/dL (12.0-16.0); Mean Corp Hgb Conc. 32.5 g/dL (33.0-37.0); Mean Corpuscular Hgb 28.2 pg (27.0-31.0); Mean Platelet Volume 11.9 fL (7.4-10.4); Nucleated Red Blood Cells % 0 %; Platelet Count 304 10^3/uL (130-400); Red Blood Cell Count 5.24 10^6/uL (4.20-5.40); Red Cell Dist. Width 13.7 % (11.5-14.5); White Blood Cell Count 8.9 10^3/uL (4.8-10.8)
[2024-05-20 13:45] LABS: ALT (SGPT) 23 U/L (0-35); AST (SGOT) 28 U/L (14-36); Albumin 5.2 g/dl (3.5-5.0); Alkaline Phosphatase 106 U/L (38-126); Blood Urea Nitrogen 21 mg/dl (7-17); Calcium 10.4 mg/dl (8.4-10.2); Carbon Dioxide 26 mmol/L (22-30); Chloride 100 mmol/L (98-107); Glucose 115 mg/dl (70-99); Potassium 4.8 mmol/L (3.5-5.1); Sodium 139 mmol/L (135-145); Total Bilirubin 1.1 mg/dl (0.2-1.3); Total Protein 7.7 g/dl (6.3-8.2); eGFR > 60.00
[2024-05-20 14:17] LABS: TSH Reflex To Free T4 2.14 uIU/ml (0.47-4.68)
[2024-05-21 10:21] LABS: Intact PTH 37.2 pg/ml (13.6-85.8)
== END ==
LOC: HWLAB 08:36
PROVIDERS: ATTENDING PHYSICIAN Internal Medicine; REFERRING PHYSICIAN Internal Medicine Cardiovascular Disease
DX: Z09 Encounter for follow-up examination after completed treatment for conditions other than malignant neoplasm (principal); Z95.0 Presence of cardiac pacemaker; I49.5 Sick sinus syndrome; E83.52 Hypercalcemia; D72.829 Elevated white blood cell count, unspecified; E06.3 Autoimmune thyroiditis
CPT/HCPCS: 36415; 80053; 83970; 84443; 85025

== ENCOUNTER → 2024-05-27 09:22 | Outpatient (REF) | payer MEDICARE, SELFPAY | LOC: HWRAD 09:22 | PROVIDERS: ATTENDING PHYSICIAN Internal Medicine | DX: M25.432 Effusion, left wrist (principal); Z95.0 Presence of cardiac pacemaker; I49.5 Sick sinus syndrome; E83.52 Hypercalcemia; E06.3 Autoimmune thyroiditis; R73.01 Impaired fasting glucose; L98.9 Disorder of the skin and subcutaneous tissue, unspecified; R41.3 Other amnesia; R53.1 Weakness | CPT/HCPCS: 72050; 73100 ==

== ENCOUNTER → 2024-07-03 08:57 | Outpatient (REF) | payer MEDICARE, SELFPAY ==
--- NOTE | 2024-07-03 14:37 | CARDSERVDEF ---
Echocardiogram with Def[facility] completed after protocol screening completed. Allergies verified.
Patent IV site: 22 g angio inserted in LAC - 1st attempt, for stress echo
IV site flushed with 0.9% NaCl pre and post administration.
Diluted bolus method utilized to enhance visualization of ventricular greco.
Total volume given: 4 mL
Patient tolerated all procedures well without complications.
Post procedure, IV d/c'd and bandage applied after pressure held.
== END ==
LOC: RCS 08:57
PROVIDERS: ATTENDING PHYSICIAN Internal Medicine Cardiovascular Disease
DX: R07.89 Other chest pain (principal)
CPT/HCPCS: 93017; 93350; Q9957

== ENCOUNTER → 2024-07-25 11:40 | Outpatient (REF) | payer MEDICARE, SELFPAY | LOC: HWRAD 11:40 | DX: M79.672 Pain in left foot (principal) | CPT/HCPCS: 73610; 73630 ==

== ENCOUNTER → 2024-10-23 11:12 | Outpatient (REF) | payer MEDICARE, SELFPAY | LOC: HWWDC 11:12 | PROVIDERS: ATTENDING PHYSICIAN Obstetrics & Gynecology; FAMILY PHYSICIAN Internal Medicine | DX: Z12.31 Encounter for screening mammogram for malignant neoplasm of breast (principal) | CPT/HCPCS: 77063; 77067 ==